=== PATIENT | male | born 1980 | race Caucasian/White ===

== ENCOUNTER 2019-12-12 09:32 | Emergency (ER) | payer BC ==
[2019-12-12] MEDS ORDERED: Sodium Chloride 0.9% 10 ML Syringe FLUSH PRN (10:20)
[2019-12-12] MEDS ORDERED: Albuterol/Ipratropium 3.0-0.5 MG/3 ML Neb Soln NEB ONE (10:21)
[2019-12-12] MEDS ORDERED: Codeine/Promethazine 10-6.25 MG/5 ML Syrup 5 ML UD Cup PO ONE (10:21)
[2019-12-12] MEDS ORDERED: Sodium Chloride 0.9% 10 ML Syringe FLUSH ONE (10:26)
[2019-12-12] MEDS ORDERED: Iopamidol 755 Mg/ML 100 ML Bottle IVPUSH ONE (10:26)
[2019-12-12] MEDS ORDERED: Sodium Chloride 0.9% 100 ML IV SCH (10:30)
[2019-12-12] MEDS ORDERED: Sodium Chloride 0.9% 1,000 ML IV SCH (10:30)
--- NOTE | 2019-12-12 10:56 | EDM.PDOC ---
ED HPI GENERAL MEDICAL PROBLEM - General Chief Complaint: Respiratory Problem Stated Complaint: SOB Time Seen by Provider: 12/12/19 09:57 Source of Information: Reports: Patient History Limitations: Reports: No Limitations - History of Present Illness INITIAL COMMENTS - FREE TEXT/NARRATIVE: The patient presents with right sided chest pain, cough and shortness of breath. This has been going on for a few days. Walk in clinic did sent him over because they thought he had a blood clot. He has no fever or chills. His says he did have pneumonia about a year ago. He does not smoke and he has no history of asthma or COPD. He has no history of DVT or PE. He has no pain or swelling in his legs. Onset: Gradual Duration: Day(s): Location: Reports: Chest Quality: Reports: Sharp Severity: Severe Improves with: Reports: Immobilization Worsens with: Reports: Other (coughing) Associated Symptoms: Reports: Chest Pain, Cough, Shortness of Breath. Denies: Fever/Chills, Headaches, Nausea/Vomiting Right Chest Pain Score (Numeric/FACES): 4 - Related Data Allergies Allergy/AdvReac Type Severity Reaction Status Date / Time No Known Allergies Allergy Verified 12/12/19 09:44 Home Meds: Home Meds Albuterol [Proventil HFA] 2 puff INH Q4H PRN #1 inhaler 12/12/19 [Rx] Azithromycin [Zithromax] 250 mg PO DAILY #6 tab 12/12/19 [Rx] Benzonatate [Tessalon Perle] 100 mg PO TID PRN 12/12/19 [History] Codeine/Promethazine [Phenergan with Codeine] 5 - 10 ml PO Q6HR PRN #300 ml 02/25 [Rx] D-Methorphan/PE/Acetaminophen [Day Time Cold-Flu Softgel] 1 cap PO DAILY PRN 02/25 [History] Fexofenadine [Sil] 30 mg PO DAILY PRN 12/12/19 [History] Omeprazole Magnesium [Prilosec Otc] 20 mg PO DAILY 12/12/19 [History] Past Medical History Respiratory History: Reports: Pneumonia, Recurrent - Infectious Disease History Infectious Disease History: Reports: Chicken Pox - Past Surgical History HEENT Surgical History: Reports: ANTONY Social & Family History - Family History Family Medical History: Noncontributory - Tobacco Use Smoking Status *Q: Former Smoker Used Tobacco, but Quit: Yes Month/Year Tobacco Last Used: 2007 - Caffeine Use Caffeine Use: Reports: Coffee, Tea - Recreational Drug Use Recreational Drug Use: No ED ROS GENERAL - Review of Systems Review Of Systems: See Below Constitutional: Reports: No Symptoms HEENT: Reports: No Symptoms Respiratory: Reports: Shortness of Breath, Cough Cardiovascular: Reports: Chest Pain Endocrine: Reports: No Symptoms GI/Abdominal: Reports: No Symptoms : Reports: No Symptoms Musculoskeletal: Reports: No Symptoms ED EXAM, GENERAL - Physical Exam Exam: See Below Exam Limited By: No Limitations General Appearance: Alert, No Apparent Distress Ears: Normal External Exam Nose: Normal Inspection Head: Atraumatic, Normocephalic Neck: Normal Inspection Respiratory/Chest: No Respiratory Distress, Lungs Clear, Normal Breath Sounds Cardiovascular: Regular Rate, Rhythm, No Edema, No Murmur GI/Abdominal: Soft, Non-Tender, No Organomegaly, No Mass Extremities: Normal Inspection Neurological: Alert, Oriented, No Motor/Sensory Deficits Course - Vital Signs Last Recorded V/S: Last Vital Signs Temp 97.8 F 12/12/19 09:40 Pulse 88 12/12/19 09:40 Resp 20 12/12/19 09:40 BP 152/100 H 12/12/19 09:40 Pulse Ox 100 12/12/19 10:21 - Orders/Labs/Meds Orders: Active Orders 24 hr Category Date Time Status Cardiac Monitoring [RC] . DIRECTED Care 12/12/19 10:20 Active Peripheral IV Care [RC] . DIRECTED Care 12/12/19 10:21 Active RT Aerosol Therapy [RC] ASDIRECTED Care 12/12/19 10:21 Active Sodium Chloride 0.9% [Normal Saline] 1,000 ml Med 12/12/19 10:30 Active IV .BOLUS Sodium Chloride 0.9% [Normal Saline] 100 ml Med 12/12/19 10:30 Active IV ASDIRECTED Sodium Chloride 0.9% [Saline Flush] Med 12/12/19 10:20 Active 10 ml FLUSH ASDIRECTED PRN Peripheral IV Insertion Adult [OM.PC] Stat Oth 12/12/19 10:20 Ordered Medication Orders Sodium Chloride (Normal Saline) 1,000 mls @ 1,000 mls/hr IV .BOLUS KRAIG Last Admin: 12/12/19 10:50 Dose: 1,000 mls/hr Sodium Chloride (Normal Saline) 100 mls @ 60 mls/hr IV ASDIRECTED KRAIG Last Admin: 12/12/19 10:45 Dose: 60 mls/hr Sodium Chloride (Saline Flush) 10 ml FLUSH ASDIRECTED PRN PRN Reason: Keep Vein Open Last Admin: 12/12/19 10:50 Dose: 10 ml Labs: Laboratory Tests 12/12/19 12/12/19 Range/Units 10:55 10:55 WBC 4.58 (4.23-9.07) K/mm3 RBC 5.92 (4.63-6.08) M/mm3 Hgb 16.7 (13.7-17.5) gm/dl Hct 48.1 (40.1-51.0) % MCV 81.3 (79.0-92.2) fl MCH 28.2 (25.7-32.2) pg MCHC 34.7 (32.2-35.5) g/dl RDW Std Deviation 38.5 (35.1-43.9) fL Plt Count 229 (163-337) K/mm3 MPV 9.1 L (9.4-12.3) fl Neut % (Auto) 40.7 (34.0-67.9) % Lymph % (Auto) 42.4 (21.8-53.1) % Churchill % (Auto) 14.8 H (5.3-12.2) % Eos % (Auto) 1.7 (0.8-7.0) Baso % (Auto) 0.4 (0.1-1.2) % Neut # (Auto) 1.86 (1.78-5.38) K/mm3 Lymph # (Auto) 1.94 (1.32-3.57) K/mm3 Churchill # (Auto) 0.68 (0.30-0.82) K/mm3 Eos # (Auto) 0.08 (0.04-0.54) K/mm3 Baso # (Auto) 0.02 (0.01-0.08) K/mm3 Sodium 137 (136-145) mEq/L Potassium 4.1 (3.5-5.1) mEq/L Chloride 102 (98-107) mEq/L Carbon Dioxide 20 L (21-32) mEq/L Anion Gap 19.1 H (5-15) BUN 15 (7-18) mg/dL Creatinine 1.3 (0.7-1.3) mg/dL Est Cr Clr Drug Dosing 87.07 mL/min Estimated GFR (MDRD) > 60 (>60) mL/min BUN/Creatinine Ratio 11.5 L (14-18) Glucose 97 (74-106) mg/dL Calcium 8.9 (8.5-10.1) mg/dL Total Bilirubin 0.6 (0.2-1.0) mg/dL AST 39 H (15-37) U/L ALT 114 H (16-63) U/L Alkaline Phosphatase 85 (46-116) U/L C-Reactive Protein 0.9 (<1.0) mg/dL Total Protein 7.6 (6.4-8.2) g/dl Albumin 3.6 (3.4-5.0) g/dl Globulin 4.0 gm/dL Albumin/Globulin Ratio 0.9 L (1-2) Meds: Medications Generic Name Dose Route Start Last Admin Trade Name Freq PRN Reason Stop Dose Admin Sodium Chloride 1,000 mls @ 1,000 mls/hr 12/12/19 10:30 12/12/19 10:50 Normal Saline IV 1,000 mls/hr .BOLUS KRAIG Administration Sodium Chloride 100 mls @ 60 mls/hr 12/12/19 10:30 12/12/19 10:45 Normal Saline IV 60 mls/hr ASDIRECTED KRAIG Administration Sodium Chloride 10 ml 12/12/19 10:20 12/12/19 10:50 Saline Flush FLUSH 10 ml ASDIRECTED PRN Administration Keep Vein Open Discontinued Medications Generic Name Dose Route Start Last Admin Trade Name Freq PRN Reason Stop Dose Admin Albuterol/Ipratropium 3 ml 12/12/19 10:21 12/12/19 10:45 Duoneb 3.0-0.5 Mg/3 Ml NEB 12/12/19 10:22 3 ml ONETIME ONE Administration Iopamidol 100 ml 12/12/19 10:26 12/12/19 10:45 [id number] (76%) IVPUSH 12/12/19 10:27 100 ml ONETIME ONE Administration Promethazine HCl/Codeine 10 ml 12/12/19 10:21 12/12/19 10:50 Phenergan With Codeine PO 12/12/19 10:22 10 ml ONETIME ONE Administration Sodium Chloride 10 ml 12/12/19 10:26 12/12/19 10:45 Saline Flush FLUSH 12/12/19 10:27 10 ml ONETIME ONE Administration - Re-Assessments/Exams Free Text/Narrative Re-Assessment/Exam: 12/12/19 10:55 I ordered an IV NS, labs, CT angio of his chest, phenergan with codeine and influenza. 12/12/19 12:13 His influenza is negative. His CBC looks good. His anion gap was elevated at 19.1. His AST was slightly elevated at 39. His ALT was elevated at 114. His CT shows no findings of pulmonary embolism. Nothing acute is seen on CT study of the chest. I feel he has bronchitis. I will get him on some zithromax, phenergan with codeine and some albuterol. He is a little more comfortable after the meds I gave him. Departure - Departure Time of Disposition: 12:20 Disposition: Home, Self-Care 01 Condition: Good Clinical Impression: Bronchitis, Pleuritic chest pain - Discharge Information *PRESCRIPTION DRUG MONITORING PROGRAM REVIEWED*: No *COPY OF PRESCRIPTION DRUG MONITORING REPORT IN PATIENT ROQUE: No Prescriptions: Codeine/Promethazine [Phenergan with Codeine] 5 - 10 ml PO Q6HR PRN #300 ml PRN Reason: Cough Albuterol [Proventil HFA] 2 puff INH Q4H PRN #1 inhaler PRN Reason: Shortness Of Breath Azithromycin [Zithromax] 250 mg PO DAILY #6 tab Referrals: PCP,None [Primary Care Provider] - Ray Everett PA-C [[employer]ician [employer]] - 1 Week Forms: ED Department Discharge, ED Return to Work/School Form Additional Instructions: Take zithromax 2 pills on day 1 and then 1 pill daily for 4 days. Take phenergan with codeine 5 to 10 mls every 6 hours as needed for cough. Use the inhaler 2 puffs every 6 hours as needed for shortness of breath. Please return if you are worse. Sepsis Event Note - Evaluation Sepsis Screening Result: No Definite Risk - Focused Exam Vital Signs: Vital Signs Temp Pulse Resp BP Pulse Ox Pulse Ox 12/12/19 10:21 100 12/12/19 09:40 97.8 F 88 20 152/100 H 98 Date Exam was Performed: 12/12/19 Time Exam was Performed: 12:12 - My Orders Last 24 Hours: My Active Orders 12/12/19 10:20 Cardiac Monitoring [RC] . DIRECTED Sodium Chloride 0.9% [Saline Flush] 10 ml FLUSH ASDIRECTED PRN Peripheral IV Insertion Adult [OM.PC] Stat 12/12/19 10:21 Peripheral IV Care [RC] . DIRECTED RT Aerosol Therapy [RC] ASDIRECTED 12/12/19 10:30 Sodium Chloride 0.9% [Normal Saline] 1,000 ml IV .BOLUS Sodium Chloride 0.9% [Normal Saline] 100 ml IV ASDIRECTED - Assessment/Plan Last 24 Hours: My Active Orders 12/12/19 10:20 Cardiac Monitoring [RC] . DIRECTED Sodium Chloride 0.9% [Saline Flush] 10 ml FLUSH ASDIRECTED PRN Peripheral IV Insertion Adult [OM.PC] Stat 12/12/19 10:21 Peripheral IV Care [RC] . DIRECTED RT Aerosol Therapy [RC] ASDIRECTED 12/12/19 10:30 Sodium Chloride 0.9% [Normal Saline] 1,000 ml IV .BOLUS Sodium Chloride 0.9% [Normal Saline] 100 ml IV ASDIRECTED
--- NOTE | 2019-12-12 11:38 | CT ---
CT chest Technique: Multiple axial sections through the chest were obtained. Intravenous contrast was utilized. Study has been performed as a pulmonary angiogram protocol. Findings: Pulmonary arteries are well opacified. No filling defects are seen to indicate pulmonary embolism. Mediastinum and hilar region show no adenopathy or mass. No pericardial thickening is seen. Visualized upper abdominal structures shows no discrete abnormality. Lungs are clear with no acute parenchymal change. No pleural effusions are seen. Bone window settings were reviewed which shows no acute osseous finding. Impression: 1. No findings of pulmonary embolism. 2. Nothing acute is seen on CT study of the chest. Diagnostic code #1 This report was dictated in [place] Standard Time
== END 2019-12-12 12:57 | disposition home or self-care (01) ==
LOC: JD.ED 09:32
DX: J40 Bronchitis, not specified as acute or chronic (principal); Z87.891 Personal history of nicotine dependence
CPT/HCPCS: 36415; 71275; 80053; 85025; 86140; 87804; 96360; 99285; A9270; J7030; J7050; Q9967; 99284; J7620-GY